=== PATIENT | male | born 1970 | race African-American/Black ===

== ENCOUNTER 2017-05-25 15:34 | Emergency (ER) | payer OTHER ==
[~2017-05-25] VITALS: Ht 182.9 cm; Wt 105.0 kg
[2017-05-25] MEDS ORDERED: NO HOME MEDICATION (15:48)
[2017-05-25] MEDS ORDERED: KETOROLAC 60MG/2ML VIAL IM ONE (17:30)
[2017-05-25 20:08] VITALS: BP 145/83
== END 2017-05-25 20:09 | disposition home or self-care (01) ==
LOC: ER 16:01
DX: S93.402A Sprain of unspecified ligament of left ankle, initial encounter (principal); S13.4XXA Sprain of ligaments of cervical spine, initial encounter; S33.5XXA Sprain of ligaments of lumbar spine, initial encounter; S83.92XA Sprain of unspecified site of left knee, initial encounter; S83.91XA Sprain of unspecified site of right knee, initial encounter; M32.9 Systemic lupus erythematosus, unspecified; W18.40XA Slipping, tripping and stumbling without falling, unspecified, initial encounter; Y93.01 Activity, walking, marching and hiking; Y92.89 Other specified places as the place of occurrence of the external cause; Y99.8 Other external cause status
CPT/HCPCS: 73560; 73610; 96372; 99284; J1885